=== PATIENT | female | born 1970 | race American Indian/Alaskan Native ===

== ENCOUNTER 2017-07-18 17:22 | Emergency (ER) | payer SELFPAY ==
--- NOTE | 2017-07-18 19:01 | XRay Report ---
FINAL REPORT EXAM: XR SHOULDER 2+V LT HISTORY: shoulder pain after injury TECHNIQUE: Three views left shoulder PRIORS: None. FINDINGS: No fractures are identified. No dislocation seen. The acromioclavicular joint is intact. Adjacent bony and soft tissue structures are unremarkable. IMPRESSION: Negative shoulder series
[2017-07-18 20:53] VITALS: BP 140/103
[2017-07-18] MEDS ORDERED: TORADOL IM ONE (20:54)
--- NOTE | 2017-07-18 20:57 | Emergency Department Report ---
ED Upper Extremity Inj HPI - General Chief Complaint: Shoulder Injury Stated Complaint: LEFT SHOULDER PAIN Time Seen by Provider: 07/18/17 20:19 Source: patient Mode of arrival: Ambulatory Limitations: No Limitations - History of Present Illness Initial Comments: Patient is 46 years old female history of sickle cell disease. Patient presented to the ER for evaluation of left shoulder pain and injury that she sustained after she had an accident at the [employer] station. She stated that the door closed on high while she is trying to exit the station. Patient denied any other injury. MD Complaint: Injury to:: left, shoulder - Related Data Allergies Allergy/AdvReac Type Severity Reaction Status Date / Time morphine Allergy Hives Verified 07/18/17 17:51 Opioids - Morphine Analogues Allergy Hives Verified 07/18/17 17:51 ED Review of Systems ROS: Stated complaint: LEFT SHOULDER PAIN Other details as noted in HPI Comment: All other systems reviewed and negative Constitutional: denies: chills, fever Respiratory: denies: cough Cardiovascular: denies: chest pain Gastrointestinal: denies: abdominal pain, nausea Neurological: denies: headache, weakness ED Past Medical Hx - Past Medical History Previous Medical History?: Yes Hx Hypertension: Yes Hx Sickle Cell Disease: Yes Hx Asthma: Yes Additional medical history: sinusitis - Surgical History Past Surgical History?: Yes Additional Surgical History: Right chest port, Gastric bypass surgery - Social History Smoking Status: Never Smoker Substance Use Type: Alcohol, Prescribed ED Physical Exam - General Limitations: No Limitations General appearance: alert, in no apparent distress - Head Head exam: Present: atraumatic, normocephalic, normal inspection - Eye Eye exam: Present: normal appearance - ENT ENT exam: Present: normal exam, normal orophraynx - Neck Neck exam: Present: normal inspection, full ROM. Absent: tenderness, lymphadenopathy - Respiratory Respiratory exam: Present: normal lung sounds bilaterally. Absent: respiratory distress, wheezes, rales, chest wall tenderness, accessory muscle use - Cardiovascular Cardiovascular Exam: Present: regular rate, normal rhythm, normal heart sounds - GI/Abdominal GI/Abdominal exam: Present: soft, normal bowel sounds. Absent: distended, tenderness, guarding, rebound, rigid - Extremities Exam Extremities exam: Present: normal inspection, full ROM, normal capillary refill , other (physical exam, full range of motion, mild tenderness.) - Back Exam Back exam: Present: normal inspection. Absent: full ROM, CVA tenderness (L) - Neurological Exam Neurological exam: Present: alert, oriented X3, CN II-XII intact, normal gait - Skin Skin exam: Present: warm, intact ED Course Vital Signs 07/18/17 07/18/17 17:45 20:30 Temperature 98.8 F Pulse Rate 89 86 Respiratory 20 16 Rate Blood Pressure 163/124 Blood Pressure 140/103 [Left] O2 Sat by Pulse 99 Oximetry ED Medical Decision Making - Radiology Data Radiology results: report reviewed Referring Physician: CAMILLE FLETCHER Patient Name: JULIA FIERRO Date of : 1970 Sex: Female Report Date: 2017-07-18 Report Status: Finalized Findings [facility] [address] [place] [address] XRay Report Signed Patient: JULIA FIERRO MR#: [id number] : 1970 Acct:[id number] Age/Sex: 46 / F ADM Date: 07/18/17 Loc: ED Attending Dr: Ordering Physician: CAMILLE FLETCHER MD Date of Service: 07/18/17 Procedure(s): XR shoulder 2+V LT Accession Number(s): [id number] cc: CAMILLE FLETCHER MD Fluoro Time In Minutes: FINAL REPORT EXAM: XR SHOULDER 2+V LT HISTORY: shoulder pain after injury TECHNIQUE: Three views left shoulder PRIORS: None. FINDINGS: No fractures are identified. No dislocation seen. The acromioclavicular joint is intact. Adjacent bony and soft tissue structures are unremarkable. IMPRESSION: Negative shoulder series Transcribed By: EnzoDK Dictated By: RYLAND HE MD Electronically Authenticated By: RYLAND HE MD Signed Date/Time: 07/18/171855 DD/ 55 TD/TT: 07/18/171855 Critical care attestation.: If time is entered above; I have spent that time in minutes in the direct care of this critically ill patient, excluding procedure time. ED Disposition Clinical Impression: Sprain of left shoulder Disposition: DC-01 TO HOME OR SELFCARE Is pt being admited?: No Condition: Stable Instructions: Shoulder Sprain (ED)
== END 2017-07-18 21:30 | disposition home or self-care (01) ==
LOC: ED 17:22
DX: S43.492A Other sprain of left shoulder joint, initial encounter (principal); I10 Essential (primary) hypertension; J45.909 Unspecified asthma, uncomplicated; D57.80 Other sickle-cell disorders without crisis; W22.8XXA Striking against or struck by other objects, initial encounter; Y93.89 Activity, other specified; Y92.89 Other specified places as the place of occurrence of the external cause; Y99.8 Other external cause status
CPT/HCPCS: 73030; 96372; 99283; J1885

== ENCOUNTER 2018-07-27 16:08 | Inpatient (IN) | payer MEDICARE ==
--- NOTE | 2018-07-27 16:19 | Emergency Department Report ---
Blank Doc - Documentation Documentation: 47 y/o femal comes in for multiple complaints. SOB. left ear feels like under water. Pain on left side. Feels like she is having a SSD flare up. LMP 3 months a go. G6,P5. CXR, retic count.
--- NOTE | 2018-07-27 16:55 | XRay Report ---
XR CHEST ROUTINE 2V CLINICAL INDICATION: Female, 47 years of age. sob, chest pain, wheezing COMPARISON: None. Findings: Frontal and lateral views of the chest were obtained. Cardiac silhouette is within normal limits. No focal consolidation or effusion. No pneumothorax. Right-sided Port-A-Cath is in place. IMPRESSION: No acute findings. This document is electronically signed by Nadya Hui DO., July 27 2018 04:53:57 PM ET
[2018-07-27 17:03] LABS: Basophils % (Auto) 0.8 % (0.0-1.8); Eosinophils # (Auto) 0.2 K/mm3 (0.0-0.4); Eosinophils % (Auto) 3.9 % (0.0-4.3); Hematocrit 37.8 % (30.3-42.9); Hemoglobin 12.6 gm/dl (10.1-14.3); Lymphocytes # (Auto) 1.8 K/mm3 (1.2-5.4); Lymphocytes % (Auto) 34.9 % (13.4-35.0); Mean Corpuscular HGB Conc 33 % (30-34); Mean Corpuscular Volume 85 fl (79-97); Monocytes # (Auto) 0.4 K/mm3 (0.0-0.8); Monocytes % (Auto) 8.4 % (0.0-7.3); Platelet Count 237 K/mm3 (140-440); Red Blood Count 4.46 M/mm3 (3.65-5.03); Red Cell Distribution Width 16.2 % (13.2-15.2)
[2018-07-27] MEDS ORDERED: DECADRON IV ONE (17:10)
[2018-07-27] MEDS ORDERED: ATROVENT IH ONE (17:10)
[2018-07-27] MEDS ORDERED: PROVENTIL IH ONE (17:10)
[2018-07-27] MEDS ORDERED: NACL 0.9% 1000 ML 1,000 ML IV ONE (17:10)
[2018-07-27] MEDS ORDERED: BENADRYL IV ONE (17:11)
[2018-07-27] MEDS ORDERED: NORMODYNE IV ONE (17:11)
[2018-07-27] MEDS ORDERED: DILAUDID IV ONE (17:11)
[2018-07-27 17:20] LABS: Alanine Aminotransferase 21 units/L (7-56); Albumin 3.8 g/dL (3.9-5); BUN/Creatinine Ratio 9; Blood Urea Nitrogen 9 mg/dL (7-17); Calcium 9.3 mg/dL (8.4-10.2); Hemolysis Index 17
--- NOTE | 2018-07-27 21:25 | Emergency Department Report ---
- General Chief Complaint: Sickle Cell Crisis Stated Complaint: PAIN/FLU/BP Time Seen by Provider: 07/27/18 16:15 Source: patient Mode of arrival: Ambulatory Limitations: No Limitations - History of Present Illness Initial Comments: Patient is a 47-year-old Female past medical history of asthma and sickle cell who is complaining of respiratory distress as well as some lower back pain. Regarding the patient's breathing patient states for the past 2-3 days she has had a cough congestion. Cough is productive of yellow sputum. Patient states she has had some subjective fevers. Patient states she's been wheezing and does have shortness of breath. The patient states since she's been coughing her lower back has been hurting as well. Patient states that the right lower extr emity especially the right foot has a burning sensation. Patient states the pain in the lower back in the foot or 8 out of 10 in severity. Patient states this is not similar to her sickle cell pain. Patient denies any erythema or swelling to the right lower extremity. - Related Data Previous Rx's Medication Instructions Recorded Last Taken Type Ketorolac [Toradol] 10 mg PO Q6H PRN #20 tablet 07/18/17 Unknown Rx Allergies Allergy/AdvReac Type Severity Reaction Status Date / Time morphine Allergy Hives Verified 07/27/18 16:09 Opioids - Morphine Analogues Allergy Hives Verified 07/27/18 16:09 ED Review of Systems ROS: Stated complaint: PAIN/FLU/BP Other details as noted in HPI Comment: All other systems reviewed and negative ED Past Medical Hx - Past Medical History Hx Hypertension: Yes Hx Sickle Cell Disease: Yes Hx Asthma: Yes Additional medical history: sinusitis - Surgical History Additional Surgical History: Right chest port, Gastric bypass surgery - Social History Smoking Status: Never Smoker Substance Use Type: None - Medications Home Medications: Home Medications Medication Instructions Recorded Confirmed Last Taken Type Ketorolac [Toradol] 10 mg PO Q6H PRN #20 tablet 07/18/17 Unknown Rx ED Physical Exam - General Limitations: No Limitations General appearance: alert, in no apparent distress - Head Head exam: Present: atraumatic, normocephalic - Eye Eye exam: Present: normal appearance - ENT ENT exam: Present: mucous membranes moist - Neck Neck exam: Present: normal inspection - Respiratory Respiratory exam: Present: respiratory distress, wheezes. Absent: normal lung sounds bilaterally, rales, rhonchi, stridor - Cardiovascular Cardiovascular Exam: Present: regular rate, normal rhythm. Absent: systolic murmur, diastolic murmur, rubs, gallop - GI/Abdominal GI/Abdominal exam: Present: soft, normal bowel sounds. Absent: distended, tenderness, guarding, rebound, rigid - Extremities Exam Extremities exam: Present: normal inspection, full ROM. Absent: tenderness - Back Exam Back exam: Present: normal inspection - Neurological Exam Neurological exam: Present: alert, oriented X3 - Psychiatric Psychiatric exam: Present: normal affect, normal mood - Skin Skin exam: Present: warm, dry, intact, normal color. Absent: rash ED Course Vital Signs 07/27/18 07/27/18 16:16 18:20 Temperature 98.2 F Pulse Rate 103 H 78 Respiratory 20 Rate Blood Pressure 172/98 185/116 O2 Sat by Pulse 99 Oximetry ED Medical Decision Making - Lab Data Result diagrams: 07/27/18 16:50 07/27/18 16:50 Lab Results 07/27/18 07/27/18 Range/Units 16:50 16:50 WBC 5.3 (4.5-11.0) K/mm3 RBC 4.46 (3.65-5.03) M/mm3 Hgb 12.6 (10.1-14.3) gm/dl Hct 37.8 (30.3-42.9) % MCV 85 (79-97) fl MCH 28 (28-32) pg MCHC 33 (30-34) % RDW 16.2 H (13.2-15.2) % Plt Count 237 (140-440) K/mm3 Lymph % (Auto) 34.9 (13.4-35.0) % [place] % (Auto) 8.4 H (0.0-7.3) % Eos % (Auto) 3.9 (0.0-4.3) % Baso % (Auto) 0.8 (0.0-1.8) % Lymph # 1.8 (1.2-5.4) K/mm3 [place] # 0.4 (0.0-0.8) K/mm3 Eos # 0.2 (0.0-0.4) K/mm3 Baso # 0.0 (0.0-0.1) K/mm3 Seg Neutrophils % 52.0 (40.0-70.0) % Seg Neutrophils # 2.7 (1.8-7.7) K/mm3 Percent Retic 1.17 (0.78-2.58) % Sodium 144 (137-145) mmol/L Potassium 4.1 (3.6-5.0) mmol/L Chloride 106.2 (98-107) mmol/L Carbon Dioxide 26 (22-30) mmol/L Anion Gap 16 mmol/L BUN 9 (7-17) mg/dL Creatinine 1.0 (0.7-1.2) mg/dL Estimated GFR > 60 ml/min BUN/Creatinine Ratio 9 % Glucose 144 H (65-100) mg/dL Calcium 9.3 (8.4-10.2) mg/dL Total Bilirubin < 0.20 (0.1-1.2) mg/dL AST 20 (5-40) units/L ALT 21 (7-56) units/L Alkaline Phosphatase 118 (35-129) units/L Total Protein 6.9 (6.3-8.2) g/dL Albumin 3.8 L (3.9-5) g/dL Albumin/Globulin Ratio 1.2 % - Radiology Data CXR WNL - Medical Decision Making Patient received a hour-long neb treatment which did not help symptoms. Patient is continued to have wheezing shortness of breath. Patient to be admitted for asthma exacerbation. Regarding the patient's back pain her pains do sound is that she has maybe strained her lower back and has some lumbar radiculopathy. Patient given pain meds for her lower back pain. Patient to be admitted to the hospitalist service at this time under Dr. Harvey Critical care attestation.: If time is entered above; I have spent that time in minutes in the direct care of this critically ill patient, excluding procedure time. ED Disposition Clinical Impression: Lumbar radiculopathy, acute Asthma exacerbation Qualifiers: Asthma severity: severe Asthma persistence: persistent Qualified Code(s): J45.51 - Severe persistent asthma with (acute) exacerbation Disposition: OP ADMIT IP TO THIS HOSP Is pt being admited?: Yes Condition: Stable Instructions: Asthma (ED) Time of Disposition: 21:25
[2018-07-27] MEDS ORDERED: DILAUDID ONE (21:49)
[2018-07-27] MEDS ORDERED: TYLENOL PO PRN (21:57)
[2018-07-27] MEDS ORDERED: SODIUM CHLORIDE FLUSH SYRINGE 10 ML IV PRN (21:57)
[2018-07-27] MEDS ORDERED: ZOFRAN IV PRN (21:57)
--- NOTE | 2018-07-27 22:00 | History and Physical Report ---
History of Present Illness Date of examination: 07/27/18 History of present illness: 47-year-old woman with a history of hypertension, asthma, sickle cell comes to the emergency room with complaints of shortness of breath, wheezing cough productive of yellow phlegm 4 days. Review of systems Constitutional: no weight loss, chills, fever Ears, eyes, nose, mouth and throat: no nasal congestion, no nasal discharge, no sinus pressure, no vision change, no red eye. Neck: No neck pain or rigidity. Cardiovascular: no palpitations, chest pain Respiratory:+ cough, shortness of breath Gastrointestinal: no hematochezia, abdominal pain Genitourinary : no frequency , no hematuria Musculoskeletal: no joint swelling or muscle ache Integumentary: no rash, no pruritis Neurological: no parathesias, no focal weakness Endocrine: no cold or heat intolerance, no polyuria or polydipsia Hematologic/Lymphatic: no easy bruising, no easy bleeding, no gland swelling Allergic/Immunologic: no urticaria, no angioedema. PAST MEDICAL HISTORY:hypertension, asthma, sickle cell PAST SURGICAL HISTORY: Gastric bypass SOCIAL HISTORY: Denies alcohol, drugs, tobacco FAMILY HISTORY: Hypertension Medications and Allergies Allergies Allergy/AdvReac Type Severity Reaction Status Date / Time morphine Allergy Hives Verified 07/27/18 16:09 Opioids - Morphine Analogues Allergy Hives Verified 07/27/18 16:09 Home Medications Medication Instructions Recorded Confirmed Last Taken Type Ketorolac [Toradol] 10 mg PO Q6H PRN #20 tablet 07/18/17 Unknown Rx Exam - Physical Exam Narrative exam: General Apperance: The patient lying in bed, breathing comfortable HEENT: Normocephalic, atraumatic. Pupils equally round and reactive to light, EOMI, no sclericterus or JVD or thyromegaly or nodule. , no carotid bruit, mucous membranes moist, no exudate or erythema Heart: S1-S2, regular is rhythm Lungs:wheezing, coarse breath sounds bilaterally, breathing comfortable Abdomen: Positive bowel sounds, soft, nontender, nondistended, no organomegaly Extremities: No edema cyanosis clubbing Skin: no rash, nodule, warm and dry Neuro: cranial nerves 2-12 intact, speech is fluent, motor/sensory intact - Constitutional Vitals: Temp Pulse Resp BP Pulse Ox 98.2 F 78 20 185/116 99 07/27/18 16:16 07/27/18 18:20 07/27/18 16:16 07/27/18 18:20 07/27/18 16:16 Results - Labs CBC & Chem 7: 07/27/18 16:50 07/27/18 16:50 Labs: Abnormal lab results 07/27/18 07/27/18 Range/Units 16:50 16:50 RDW 16.2 H (13.2-15.2) % [place] % (Auto) 8.4 H (0.0-7.3) % Glucose 144 H (65-100) mg/dL Albumin 3.8 L (3.9-5) g/dL - Imaging and Cardiology Chest x-ray: report reviewed Assessment and Plan Assessment Acute asthma exacerbation with bronchitis Sickle cell Hypertension uncontrolled Plan Start high-dose steroids, azithromycin, nebulizer treatments IV dilaudid , IV hydralazine DVT prophylaxis
[2018-07-27] MEDS ORDERED: APRESOLINE IV PRN (22:13)
[2018-07-27] MEDS: DILAUDID IV PRN (22:20)
[2018-07-27] MEDS: BENADRYL IV PRN (22:22)
[2018-07-28] MEDS: ZITHROMAX 500 MG in NACL 0.9% 250ML 250 ML IV SCH ×2 (00:09→22:27)
[2018-07-28] MEDS: SODIUM CHLORIDE FLUSH SYRINGE 10 ML IV SCH ×3 (00:10→21:45)
[2018-07-28] MEDS: DUONEB *Not for PRN Use IH SCH ×4 (01:33→20:23)
[2018-07-28] MEDS: DILAUDID IV PRN ×5 (03:16→21:45)
[2018-07-28 06:49] LABS: Basophils % (Auto) 0.6 % (0.0-1.8); Hematocrit 32.7 % (30.3-42.9); Mean Corpuscular HGB Conc 34 % (30-34); Mean Corpuscular Volume 84 fl (79-97); Mean Platelet Volume 7.7 fl (6-12); Platelet Count 210 K/mm3 (140-440); Red Blood Count 3.89 M/mm3 (3.65-5.03); Red Cell Distribution Width 15.9 % (13.2-15.2)
[2018-07-28 06:50] LABS: Monocytes # (Auto) 0.4 K/mm3 (0.0-0.8)
[2018-07-28 07:02] LABS: BUN/Creatinine Ratio 14; Blood Urea Nitrogen 13 mg/dL (7-17); Hemolysis Index 6
[2018-07-28] MEDS: BENADRYL IV PRN ×3 (08:47→23:34)
[2018-07-28] MEDS ORDERED: LOVENOX SUB-Q SCH (10:00)
--- NOTE | 2018-07-28 10:15 | Progress Note ---
Assessment and Plan Assessment and plan: Acute asthma exacerbation sec to acute bronchitis -Improving -Continue nebulizer breathing treatments and antibiotic, will add mucinex Sickle cell pain crisis -Continue when necessary narcotics Hypertension -Blood pressure improved, will start amlodipine Disposition: For discharge when pain is controlled History Interval history: Patient complained of generalized body pain which is not improved. She also requested for something for sleep at night Hospitalist Physical - Constitutional Vitals: Temp Pulse Resp BP Pulse Ox 98.7 F 100 H 20 146/86 98 07/28/18 04:55 07/28/18 07:25 07/28/18 07:25 07/28/18 04:55 07/28/18 07:15 General appearance: Present: no acute distress - EENT Eyes: Present: PERRL, EOM intact ENT: hearing intact, clear oral mucosa - Neck Neck: Present: supple - Respiratory Respiratory effort: normal Respiratory: bilateral: CTA - Cardiovascular Rhythm: regular Heart Sounds: Present: S1 & S2 - Extremities Extremities: No edema - Abdominal General gastrointestinal: soft, non-tender, normal bowel sounds - Integumentary Integumentary: Present: clear, warm, dry - Neurologic Neurologic: CNII-XII intact Results - Labs CBC & Chem 7: 07/28/18 06:28 07/28/18 06:28 Labs: Laboratory Last Values WBC 7.4 K/mm3 (4.5-11.0) 07/28/18 06:28 RBC 3.89 M/mm3 (3.65-5.03) 07/28/18 06:28 Hgb 11.0 gm/dl (10.1-14.3) 07/28/18 06:28 Hct 32.7 % (30.3-42.9) 07/28/18 06:28 MCV 84 fl (79-97) 07/28/18 06:28 MCH 28 pg (28-32) 07/28/18 06:28 MCHC 34 % (30-34) 07/28/18 06:28 RDW 15.9 % (13.2-15.2) H 07/28/18 06:28 Plt Count 210 K/mm3 (140-440) 07/28/18 06:28 Lymph % (Auto) 13.0 % (13.4-35.0) L 07/28/18 06:28 [place] % (Auto) 6.0 % (0.0-7.3) 07/28/18 06:28 Eos % (Auto) 0.0 % (0.0-4.3) 07/28/18 06:28 Baso % (Auto) 0.6 % (0.0-1.8) 07/28/18 06:28 Lymph # 1.0 K/mm3 (1.2-5.4) L 07/28/18 06:28 [place] # 0.4 K/mm3 (0.0-0.8) 07/28/18 06:28 Eos # 0.0 K/mm3 (0.0-0.4) 07/28/18 06:28 Baso # 0.0 K/mm3 (0.0-0.1) 07/28/18 06:28 Seg Neutrophils % 80.4 % (40.0-70.0) H 07/28/18 06:28 Seg Neutrophils # 6.0 K/mm3 (1.8-7.7) 07/28/18 06:28 Percent Retic 1.17 % (0.78-2.58) 07/27/18 16:50 Sodium 139 mmol/L (137-145) 07/28/18 06:28 Potassium 4.6 mmol/L (3.6-5.0) 07/28/18 06:28 Chloride 104.0 mmol/L (98-107) 07/28/18 06:28 Carbon Dioxide 23 mmol/L (22-30) 07/28/18 06:28 Anion Gap 17 mmol/L 07/28/18 06:28 BUN 13 mg/dL (7-17) 07/28/18 06:28 Creatinine 0.9 mg/dL (0.7-1.2) 07/28/18 06:28 Estimated GFR > 60 ml/min 07/28/18 06:28 BUN/Creatinine Ratio 14 % 07/28/18 06:28 Glucose 234 mg/dL (65-100) H 07/28/18 06:28 Calcium 9.0 mg/dL (8.4-10.2) 07/28/18 06:28 Total Bilirubin < 0.20 mg/dL (0.1-1.2) 07/27/18 16:50 AST 20 units/L (5-40) 07/27/18 16:50 ALT 21 units/L (7-56) 07/27/18 16:50 Alkaline Phosphatase 118 units/L (35-129) 07/27/18 16:50 Total Protein 6.9 g/dL (6.3-8.2) 07/27/18 16:50 Albumin 3.8 g/dL (3.9-5) L 07/27/18 16:50 Albumin/Globulin Ratio 1.2 % 07/27/18 16:50 Active Medications - Current Medications Current Medications: Generic Name Dose Route Start Last Admin Trade Name Freq PRN Reason Stop Dose Admin Acetaminophen 650 mg 07/27/18 21:57 Tylenol PO Q4H PRN Pain MILD(1-3)/Fever >100.5/MAX Albuterol/Ipratropium 1 ampul 07/28/18 02:00 07/28/18 07:15 Duoneb *Not For Prn Use* IH 1 ampul Q6HRT JUDITH Administration Diphenhydramine HCl 25 mg 07/27/18 22:10 07/28/18 08:47 Benadryl IV 25 mg Q6H PRN Administration Itching Enoxaparin Sodium 40 mg 07/28/18 10:00 Lovenox SUB-Q QDAY@1000 JUDITH Hydralazine HCl 5 mg 07/27/18 22:13 07/28/18 00:36 Apresoline IV 5 mg Q6H PRN Administration Hypertension Hydromorphone HCl 1 mg 07/27/18 21:57 07/28/18 08:47 Dilaudid IV 1 mg Q4H PRN Administration Pain, Moderate (4-6) Azithromycin 500 mg/ Sodium 250 mls @ 250 mls/hr 07/27/18 22:09 07/28/18 00 :09 Chloride IV 250 mls/hr Q24HR@2200 JUDITH Administration Protocol Ondansetron HCl 4 mg 07/27/18 21:57 Zofran IV Q8H PRN Nausea And Vomiting Sodium Chloride 10 ml 07/27/18 22:00 07/28/18 00:10 Sodium Chloride Flush Syringe 10 Ml IV 10 ml BID JUDITH Administration Sodium Chloride 10 ml 07/27/18 21:57 Sodium Chloride Flush Syringe 10 Ml IV PRN PRN LINE FLUSH
[2018-07-28] MEDS: NORVASC PO SCH (11:35)
[2018-07-28] MEDS: LOVENOX SUB-Q SCH (11:36)
[2018-07-28] MEDS: MUCINEX ER PO SCH ×2 (11:41→21:44)
[2018-07-28] MEDS: AMBIEN PO PRN (21:44)
[2018-07-28] MEDS: SOLU-Medrol IV SCH (21:45)
[2018-07-29] MEDS: DUONEB *Not for PRN Use IH SCH ×4 (02:00→19:03)
[2018-07-29] MEDS: SOLU-Medrol IV SCH ×3 (03:07→21:33)
[2018-07-29] MEDS: DILAUDID IV PRN ×5 (03:52→21:34)
[2018-07-29] MEDS: BENADRYL IV PRN ×3 (07:01→23:34)
[2018-07-29] MEDS: NORVASC PO SCH (09:01)
[2018-07-29] MEDS: MUCINEX ER PO SCH ×2 (09:01→21:33)
[2018-07-29] MEDS: LOVENOX SUB-Q SCH (09:02)
[2018-07-29] MEDS: SODIUM CHLORIDE FLUSH SYRINGE 10 ML IV SCH ×2 (09:02→21:45)
[2018-07-29] MEDS ORDERED: NORVASC PO SCH (10:01)
[2018-07-29] MEDS ORDERED: NORVASC PO ONE (11:00)
[2018-07-29] MEDS ORDERED: SOLU-Medrol IV SCH (11:00)
[2018-07-29] MEDS ORDERED: APRESOLINE IV PRN (12:24)
--- NOTE | 2018-07-29 12:25 | Progress Note ---
Assessment and Plan Assessment and plan: Acute asthma exacerbation sec to acute bronchitis -Improving -Continue steroids, nebulizer breathing treatments, antibiotic and mucinex Sickle cell pain crisis -Controlled on current narcotics Hypertensive urgency -Blood pressure uncontrolled, antihypertensives adjusted Hyperglycemia -Probably secondary to steroid use -Hemoglobin A1c pending Disposition: For discharge when pain is controlled History Interval history: Patient reports improvement in her bone pain. He rates it 7/10 today. No new complaints. Hospitalist Physical - Constitutional Vitals: Temp Pulse Resp BP Pulse Ox 98.7 F 73 20 185/112 93 07/29/18 11:58 07/29/18 10:58 07/29/18 11:58 07/29/18 11:58 07/29/18 10:58 General appearance: Present: no acute distress - EENT Eyes: Present: PERRL, EOM intact ENT: hearing intact, clear oral mucosa - Neck Neck: Present: supple - Respiratory Respiratory effort: normal Respiratory: bilateral: wheezing (mild) - Cardiovascular Rhythm: regular Heart Sounds: Present: S1 & S2 - Extremities Extremities: No edema - Abdominal General gastrointestinal: soft, non-tender, normal bowel sounds - Integumentary Integumentary: Present: clear, warm, dry - Neurologic Neurologic: CNII-XII intact Results - Labs CBC & Chem 7: 07/28/18 06:28 07/28/18 06:28 Labs: Laboratory Last Values WBC 7.4 K/mm3 (4.5-11.0) 07/28/18 06:28 RBC 3.89 M/mm3 (3.65-5.03) 07/28/18 06:28 Hgb 11.0 gm/dl (10.1-14.3) 07/28/18 06:28 Hct 32.7 % (30.3-42.9) 07/28/18 06:28 MCV 84 fl (79-97) 07/28/18 06:28 MCH 28 pg (28-32) 07/28/18 06:28 MCHC 34 % (30-34) 07/28/18 06:28 RDW 15.9 % (13.2-15.2) H 07/28/18 06:28 Plt Count 210 K/mm3 (140-440) 07/28/18 06:28 Lymph % (Auto) 13.0 % (13.4-35.0) L 07/28/18 06:28 [place] % (Auto) 6.0 % (0.0-7.3) 07/28/18 06:28 Eos % (Auto) 0.0 % (0.0-4.3) 07/28/18 06:28 Baso % (Auto) 0.6 % (0.0-1.8) 07/28/18 06:28 Lymph # 1.0 K/mm3 (1.2-5.4) L 07/28/18 06:28 [place] # 0.4 K/mm3 (0.0-0.8) 07/28/18 06:28 Eos # 0.0 K/mm3 (0.0-0.4) 07/28/18 06:28 Baso # 0.0 K/mm3 (0.0-0.1) 07/28/18 06:28 Seg Neutrophils % 80.4 % (40.0-70.0) H 07/28/18 06:28 Seg Neutrophils # 6.0 K/mm3 (1.8-7.7) 07/28/18 06:28 Percent Retic 1.17 % (0.78-2.58) 07/27/18 16:50 Sodium 139 mmol/L (137-145) 07/28/18 06:28 Potassium 4.6 mmol/L (3.6-5.0) 07/28/18 06:28 Chloride 104.0 mmol/L (98-107) 07/28/18 06:28 Carbon Dioxide 23 mmol/L (22-30) 07/28/18 06:28 Anion Gap 17 mmol/L 07/28/18 06:28 BUN 13 mg/dL (7-17) 07/28/18 06:28 Creatinine 0.9 mg/dL (0.7-1.2) 07/28/18 06:28 Estimated GFR > 60 ml/min 07/28/18 06:28 BUN/Creatinine Ratio 14 % 07/28/18 06:28 Glucose 234 mg/dL (65-100) H 07/28/18 06:28 Hemoglobin A1c 6.8 % (4-6) H 07/29/18 10:10 Calcium 9.0 mg/dL (8.4-10.2) 07/28/18 06:28 Total Bilirubin < 0.20 mg/dL (0.1-1.2) 07/27/18 16:50 AST 20 units/L (5-40) 07/27/18 16:50 ALT 21 units/L (7-56) 07/27/18 16:50 Alkaline Phosphatase 118 units/L (35-129) 07/27/18 16:50 Total Protein 6.9 g/dL (6.3-8.2) 07/27/18 16:50 Albumin 3.8 g/dL (3.9-5) L 07/27/18 16:50 Albumin/Globulin Ratio 1.2 % 07/27/18 16:50 Active Medications - Current Medications Current Medications: Generic Name Dose Route Start Last Admin Trade Name Freq PRN Reason Stop Dose Admin Acetaminophen 650 mg 07/27/18 21:57 Tylenol PO Q4H PRN Pain MILD(1-3)/Fever >100.5/MAX Albuterol/Ipratropium 1 ampul 07/28/18 02:00 07/29/18 08:36 Duoneb *Not For Prn Use* IH 1 ampul Q6HRT JUDITH Administration Amlodipine Besylate 10 mg 07/30/18 10:00 Norvasc PO DAILY [facility] Azithromycin 500 mg 07/29/18 22:00 Zithromax PO 07/31/18 22:01 QHS JUDITH Diphenhydramine HCl 25 mg 07/27/18 22:10 07/29/18 07:01 Benadryl IV 25 mg Q6H PRN Administration Itching Enoxaparin Sodium 40 mg 07/28/18 10:00 07/29/18 09:02 Lovenox SUB-Q 40 mg QDAY@1000 JUDITH Administration Guaifenesin 600 mg 07/28/18 11:00 07/29/18 09:01 Mucinex Er PO 600 mg BID JUDITH Administration Hydralazine HCl 5 mg 07/27/18 22:13 07/28/18 00:36 Apresoline IV 5 mg Q6H PRN Administration Hypertension Hydromorphone HCl 1 mg 07/28/18 10:15 07/29/18 11:48 Dilaudid IV 1 mg Q3H PRN Administration Pain, Moderate (4-6) Methylprednisolone Sodium Succinate 40 mg 07/29/18 22:00 Solu-Medrol IV Q12HR JUDITH Ondansetron HCl 4 mg 07/27/18 21:57 Zofran IV Q8H PRN Nausea And Vomiting Sodium Chloride 10 ml 07/27/18 22:00 07/29/18 09:02 Sodium Chloride Flush Syringe 10 Ml IV 10 ml BID JUDITH Administration Sodium Chloride 10 ml 07/27/18 21:57 Sodium Chloride Flush Syringe 10 Ml IV PRN PRN LINE FLUSH Zolpidem Tartrate 5 mg 07/28/18 22:00 07/28/18 21:44 Ambien PO 5 mg QHS PRN Administration Sleep
[2018-07-29] MEDS: NORMODYNE PO SCH ×2 (13:35→21:33)
[2018-07-29] MEDS: AMBIEN PO PRN (21:40)
[2018-07-29] MEDS ORDERED: ZITHROMAX PO SCH (22:00)
[2018-07-30] MEDS: DILAUDID IV PRN ×3 (00:56→10:29)
[2018-07-30] MEDS ORDERED: PROVENTIL IH PRN (01:15)
[2018-07-30] MEDS: DUONEB *Not for PRN Use IH SCH ×3 (01:15→13:21)
[2018-07-30] MEDS: BENADRYL IV PRN (05:46)
[2018-07-30 06:10] VITALS: BP 138/87
--- NOTE | 2018-07-30 09:56 | Discharge Summary ---
Providers - Providers Date of Admission: 07/27/18 21:57 Attending physician: OTTO ANTUNEZ MD Primary care physician: CHALO LUU Hospitalization Reason for admission: sepsis Condition: Stable Hospital course: 47-year-old woman with a history of hypertension, asthma, sickle cell comes to the emergency room with complaints of shortness of breath, wheezing cough productive of yellow phlegm 4 days. She was treated with acute asthma exacerbation secondary to acute bronchitis AND Discharged on steroids and breathing treatments with abx. We also discussed with the patient the finding of elevated A1C 6.8 and possiblity of diabetes. she will like to try diet control and will discuss with her PCP. she also complained of neuropathic pain and was started on gabpending Acute asthma exacerbation sec to acute bronchitis Sickle cell pain crisis Hypertensive urgency -Blood pressure uncontrolled, antihypertensives adjusted Hyperglycemia- Prediabetes -Probably secondary to steroid use -Hemoglobin A1c 6.8. advised of finding and recommended repeats study Neuropathy-bilateral Lower ext and bilateral upper ext ADVISED TO FOLLOW WITH PCP, ALSO OBTAIN OUTPATIENT PT AND START ON LOW DOSE GABAPENTIN Morbid obesity, BMI 43.9 WEIGHTLOSS COUNSELLING PROVIDED Di Disposition: DC-01 TO HOME OR SELFCARE Time spent for discharge: 35 mins Core Measure Documentation - Palliative Care Palliative Care/ Comfort Measures: Not Applicable - Core Measures Any of the following diagnoses?: none - VTE Discharge Requirements Deep Vein Thrombosis/Pulmonary Embolism Present on Admission: No Exam - Physical Exam Narrative exam: General appearance: Present: no acute distress - EENT Eyes: Present: PERRL, EOM intact ENT: hearing intact, clear oral mucosa - Neck Neck: Present: supple - Respiratory Respiratory effort: normal Respiratory: bilateral: wheezing (mild) - Cardiovascular Rhythm: regular Heart Sounds: Present: S1 & S2 - Extremities Extremities: No edema - Abdominal General gastrointestinal: soft, non-tender, normal bowel sounds - Integumentary Integumentary: Present: clear, warm, dry - Neurologic Neurologic: CNII-XII intact - Constitutional Vitals: Temp Pulse Resp BP Pulse Ox 98.2 F 90 20 138/87 97 07/30/18 05:41 07/30/18 05:41 07/30/18 05:41 07/30/18 05:41 07/30/18 05:41 Plan Activity: advance as tolerated, fall precautions Diet: low fat, diabetic Special Instructions: record daily BP diary, record blood sugar diary Follow up with: CHALO LUU MD [Primary Care Provider] - 7 Days Forms: Work/School Release Form Prescriptions: Azithromycin [Zithromax TAB] 500 mg PO QHS #3 tablet guaiFENesin ER [Mucinex ER] 600 mg PO BID #20 tablet Gabapentin [Neurontin] 100 mg PO Q8HR #60 capsule Labetalol [Normodyne TAB] 100 mg PO BID #60 tablet amLODIPine [Norvasc] 10 mg PO DAILY #30 tablet Prednisone [predniSONE 5 mg (6-Day Pack, 21 Tabs)] 5 mg PO .TAPER #1 tab.ds.pk Other Discharge Orders: Physicial Therapy (Amb) Location: None Selected Glucometer (Amb) Location: None Selected Glucometer supplies[Amb] Location: None Selected
[2018-07-30] MEDS ORDERED: NORVASC PO SCH (10:00)
[2018-07-30] MEDS: NORMODYNE PO SCH (10:29)
[2018-07-30] MEDS: LOVENOX SUB-Q SCH (10:29)
[2018-07-30] MEDS: SODIUM CHLORIDE FLUSH SYRINGE 10 ML IV SCH (10:29)
[2018-07-30] MEDS: MUCINEX ER PO SCH (10:29)
[2018-07-30] MEDS: SOLU-Medrol IV SCH (10:29)
[2018-07-30] MEDS ORDERED: TRIPLE ANTIBIOTIC TP ONE (11:00)
[2018-07-30] MEDS ORDERED: FLUSH HEPARIN IV ONE (11:00)
== END 2018-07-30 13:45 | disposition home or self-care (01) | DRG 202 ==
LOC: ED 16:08 → 3A 21:57
PROVIDERS: ADMIT Internal Medicine; ATTEND Internal Medicine
DX: J45.51 Severe persistent asthma with (acute) exacerbation (principal); D57.00 Hb-SS disease with crisis, unspecified; Z68.41 Body mass index [BMI] 40.0-44.9, adult; J20.9 Acute bronchitis, unspecified; I16.0 Hypertensive urgency; E66.01 Morbid (severe) obesity due to excess calories; M54.16 Radiculopathy, lumbar region; I10 Essential (primary) hypertension; R73.9 Hyperglycemia, unspecified; T38.0X5A Adverse effect of glucocorticoids and synthetic analogues, initial encounter; Y92.89 Other specified places as the place of occurrence of the external cause; G62.9 Polyneuropathy, unspecified
CPT/HCPCS: 36415; 71046; 80048; 80053; 83036; 85025; 85045; 94640; 94760; 96374; 96375; G0378; A6250; J0360; J0456; J1100; J1170; J1200; J1642; J1650; J2920; J2930; J7030; J7050

== ENCOUNTER 2019-02-08 15:21 | Emergency (ER) | payer MEDICARE ==
--- NOTE | 2019-02-08 17:21 | Event Note ---
ED Screening Note Date of service: 02/08/19 Time: 17:20 ED Screening Note: Pt complains of congestion and SOB x a few days states SOB with walking only states mild cough denies smoking, +hx of asthma denies fever This initial assessment/diagnostic orders/clinical plan/treatment(s) is/are subj ect to change based on patients health status, clinical progression and re- assessment by fellow clinical providers in the ED. Further treatment and workup at subsequent clinical providers discretion. Patient/guardian urged not to elope from the ED as their condition may be serious if not clinically assessed and managed. Initial orders include: CXR
--- NOTE | 2019-02-08 18:21 | Emergency Department Report ---
HPI - General Chief Complaint: Upper Respiratory Infection Time Seen by Provider: 02/08/19 17:19 - HPI HPI: Room 31 The pt is a 48 y/o F p/w a cc of URI sxs and RLE bruising. The pt states her symptoms began ~ 1 week ago with MAX right sided facial pain, coug and congestion. Pt states her cough has been productive of green/yellow sputum. Pt denies h/o F. Pt admits to nasal congestion and rhinnorhea. The pt states she also began to notice bruising on the RLE without h/o trauma. ED Past Medical Hx - Past Medical History Hx Hypertension: Yes Hx Sickle Cell Disease: Yes (Trait) Hx Asthma: Yes Additional medical history: sinusitis - Surgical History Additional Surgical History: Right chest port, Gastric bypass surgery - Family History Family history: no significant - Social History Smoking Status: Never Smoker Substance Use Type: None (denies illicit drug use), Alcohol (occ) - Medications Home Medications: Home Medications Medication Instructions Recorded Confirmed Last Taken Type Ketorolac [Toradol] 10 mg PO Q6H PRN #20 tablet 07/18/17 07/28/18 Unknown Rx Azithromycin [Zithromax TAB] 500 mg PO QHS #3 tablet 07/30/18 Unknown Rx Gabapentin 100 mg PO Q8HR #60 capsule 07/30/18 Unknown Rx Labetalol [Labetalol 100mg TAB] 100 mg PO BID #60 tablet 07/30/18 Unknown Rx Prednisone [predniSONE 5 mg (6-Day 5 mg PO .TAPER #1 tab.ds.pk 07/30/18 Unknown Rx Pack, 21 Tabs)] amLODIPine 10 mg PO DAILY #30 tablet 07/30/18 Unknown Rx guaiFENesin ER [Mucinex ER] 600 mg PO BID #20 tablet 07/30/18 Unknown Rx Acetaminophen/Codeine [Tylenol 1 tab PO Q6H PRN #12 tab 08/07/18 Unknown Rx /Codeine # 3 tab] Baclofen 20 mg PO Q8H PRN #21 tablet 08/07/18 Unknown Rx Gabapentin 300 mg PO Q8HR #45 capsule 08/07/18 Unknown Rx predniSONE [Deltasone] 60 mg PO QDAY #15 tab 08/07/18 Unknown Rx ALBUTEROL Inhaler (OR & NICU) 2 puff IH QID PRN #8.5 gram 02/08/19 Unknown Rx [ProAir HFA Inhaler] Amoxicillin [Amoxicillin TAB] 875 mg PO BID #14 tablet 02/08/19 Unknown Rx ED Review of Systems ROS: Stated complaint: RICCI/DIFFICULTY HEARING/BRUISES ON LEGS Other details as noted in HPI Constitutional: denies: fever Eyes: denies: eye pain ENT: hearing loss, congestion Respiratory: cough Cardiovascular: denies: chest pain Endocrine: no symptoms reported Gastrointestinal: denies: abdominal pain Genitourinary: denies: dysuria Musculoskeletal: denies: back pain Skin: denies: rash Neurological: headache Hematological/Lymphatic: easy bruising Physical Exam - Physical Exam Vital Signs: Vital Signs 02/08/19 15:34 Temperature 98.5 F Pulse Rate 92 H Respiratory 18 Rate Blood Pressure 145/106 O2 Sat by Pulse 98 Oximetry Physical Exam: GEN: WD WN F sitting in chair in NAD HEENT: NCAT, EOMI NECK:Trachea midline, no stridor CV: rrr no m/r/g Pulm: diminished bilat, occ rhonchi. no resp distress ABD: s/nt/nd +BS Neuro: GCS 15 SKIN: no diaphoresis MS:bruising present to the medial aspect of the prox right calf.There is no ttp of the right calf. Bruising to the right anterior thigh. no evidence of acute injury ED Course Vital Signs 02/08/19 15:34 Temperature 98.5 F Pulse Rate 92 H Respiratory 18 Rate Blood Pressure 145/106 O2 Sat by Pulse 98 Oximetry ED Medical Decision Making - Lab Data Result diagrams: 02/08/19 18:27 02/08/19 18:27 Laboratory Tests 02/08/19 02/08/19 02/08/19 18:27 18:27 18:27 WBC 5.8 RBC 4.75 Hgb 12.5 Hct 38.4 MCV 81 MCH 26 L MCHC 32 RDW 16.7 H Plt Count 286 Lymph % (Auto) 36.3 H [place] % (Auto) 6.6 Eos % (Auto) 5.8 H Baso % (Auto) 0.6 Lymph # 2.1 [place] # 0.4 Eos # 0.3 Baso # 0.0 Seg Neutrophils % 50.7 Seg Neutrophils # 2.9 PT 12.1 L INR 0.90 APTT 26.6 D-Dimer 424.35 H Sodium 143 Potassium 4.2 Chloride 103.9 Carbon Dioxide 25 Anion Gap 18 BUN 12 Creatinine 0.8 Estimated GFR > 60 BUN/Creatinine Ratio 15 Glucose 116 H Calcium 9.5 Influenza A (Rapid) Influenza B (Rapid) 02/08/19 18:30 WBC RBC Hgb Hct MCV MCH MCHC RDW Plt Count Lymph % (Auto) [place] % (Auto) Eos % (Auto) Baso % (Auto) Lymph # [place] # Eos # Baso # Seg Neutrophils % Seg Neutrophils # PT INR APTT D-Dimer Sodium Potassium Chloride Carbon Dioxide Anion Gap BUN Creatinine Estimated GFR BUN/Creatinine Ratio Glucose Calcium Influenza A (Rapid) Negative Influenza B (Rapid) Negative - Radiology Data Radiology results: report reviewed (RLE Doppler), image reviewed (RLE doppler) [facility] [address] [id number] Vascular Lab Report Signed Patient: JULIA DYER MR #: [id number] : 1970 Acct:[id number] Age/Sex: 48 / F ADM Date: 02/08/19 Loc: ED Attending Dr: Ordering Physician: NOELLE MARINO MD Date of Service: 02/08/19 Procedure(s): VL venous duplex LE RT Accession Number(s): [id number] cc: NOELLE MARINO MD DUPLEX DOPPLER LOWER EXTREMITY VEINS, LEFT INDICATION: bruising. Left lower extremity pain and swelling. Recent fracture. TECHNIQUE: Duplex doppler imaging was performed through the veins of the left lower extr emity using venous compression and other maneuvers. COMPARISON: None available. FINDINGS: Common Femoral vein: Negative. Superficial Femoral vein: Negative. Popliteal vein: Negative. Calf veins: Negative. Additional findings: None. IMPRESSION: 1. No sonographic evidence for DVT in the left lower extremity. Signer Name: Kendrick Velazquez MD Signed: 02/08/2019 8:12 PM Workstation Name: [id number] Transcribed By: BC Dictated By: Kendrick Velazquez MD Electronically Authenticated By: Kendrick Velazquez MD Signed Date/Time: 02/08/192011 DD/ 11 TD/TT: - Differential Diagnosis URI, Thrombocytopenia, DVT, DIC Critical care attestation.: If time is entered above; I have spent that time in minutes in the direct care of this critically ill patient, excluding procedure time. ED Disposition Clinical Impression: Acute sinusitis, Superficial bruising of lower leg Disposition: DC-01 TO HOME OR SELFCARE Is pt being admited?: No Does the pt Need Aspirin: No Condition: Stable Prescriptions: Amoxicillin [Amoxicillin TAB] 875 mg PO BID #14 tablet ALBUTEROL Inhaler (OR & NICU) [ProAir HFA Inhaler] 2 puff IH QID PRN #8.5 gram PRN Reason: Shortness Of Breath Referrals: MARYAN YANES DO [Staff Physician] - 3-5 Days (Dr Yanes is a Advertising Account Manager. Please follow up with him for further evaluation) Time of Disposition: 20:24
[2019-02-08] MEDS ORDERED: IPRATROPIUM/ALBUTEROL SULFATE 3 ML AMPUL.NEB IH ONE (18:22)
[2019-02-08 19:02] LABS: INR 0.9 (0.87-1.13)
[2019-02-08 19:04] LABS: Partial Thromboplastin Time 26.6 Sec. (24.2-36.6)
[2019-02-08 19:14] LABS: BUN/Creatinine Ratio 15; Blood Urea Nitrogen 12 mg/dL (7-17); Calcium 9.5 mg/dL (8.4-10.2); Hemolysis Index 20
[2019-02-08 19:33] LABS: Basophils % (Auto) 0.6 % (0.0-1.8); Eosinophils # (Auto) 0.3 K/mm3 (0.0-0.4); Eosinophils % (Auto) 5.8 % (0.0-4.3); Hematocrit 38.4 % (30.3-42.9); Hemoglobin 12.5 gm/dl (10.1-14.3); Lymphocytes # (Auto) 2.1 K/mm3 (1.2-5.4); Lymphocytes % (Auto) 36.3 % (13.4-35.0); Mean Corpuscular HGB Conc 32 % (30-34); Mean Corpuscular Volume 81 fl (79-97); Monocytes # (Auto) 0.4 K/mm3 (0.0-0.8); Monocytes % (Auto) 6.6 % (0.0-7.3); Platelet Count 286 K/mm3 (140-440); Red Blood Count 4.75 M/mm3 (3.65-5.03); Red Cell Distribution Width 16.7 % (13.2-15.2)
--- NOTE | 2019-02-08 19:38 | XRay Report ---
CHEST 2 VIEWS INDICATION / CLINICAL INFORMATION: cough, congestion. COMPARISON: None available. FINDINGS: SUPPORT DEVICES: Right internal jugular Port-A-Cath has tip in SVC. HEART / MEDIASTINUM: No significant abnormality. LUNGS / PLEURA: No significant pulmonary or pleural abnormality. No pneumothorax. ADDITIONAL FINDINGS: No significant additional findings. IMPRESSION: 1. No acute findings. Signer Name: Ray Gonzales MD Signed: 02/08/2019 7:34 PM Workstation Name: [id number]
--- NOTE | 2019-02-08 20:16 | Vascular Lab Report ---
DUPLEX DOPPLER LOWER EXTREMITY VEINS, LEFT INDICATION: bruising. Left lower extremity pain and swelling. Recent fracture. TECHNIQUE: Duplex doppler imaging was performed through the veins of the left lower extremity using venous compr ession and other maneuvers. COMPARISON: None available. FINDINGS: Common Femoral vein: Negative. Superficial Femoral vein: Negative. Popliteal vein: Negative. Calf veins: Negative. Additional findings: None. IMPRESSION: 1. No sonographic evidence for DVT in the left lower extremity. Signer Name: Kendrick Velazquez MD Signed: 02/08/2019 8:12 PM Workstation Name: [id number]
[2019-02-08 21:16] VITALS: BP 180/114
== END 2019-02-08 21:15 | disposition home or self-care (01) ==
LOC: ED 15:21
DX: J01.90 Acute sinusitis, unspecified (principal); S80.11XA Contusion of right lower leg, initial encounter; I10 Essential (primary) hypertension; J45.909 Unspecified asthma, uncomplicated; Z98.84 Bariatric surgery status; Z79.899 Other long term (current) drug therapy; Z88.5 Allergy status to narcotic agent; X58.XXXA Exposure to other specified factors, initial encounter; Y93.89 Activity, other specified; Y92.89 Other specified places as the place of occurrence of the external cause; Y99.8 Other external cause status
CPT/HCPCS: 36415; 71046; 80048; 85025; 85379; 85610; 85730; 87400; 94640